=== PATIENT | male | born 1985 | race Asian ===

== ENCOUNTER 2022-12-20 20:18 | Emergency (ER) | payer OTHER, SELFPAY ==
[2022-12-20 20:48] VITALS: BP 96/67; PULSE 71; RESP 16; TEMP 36.6; O2SAT 97; BMI 24.0
--- NOTE | 2022-12-20 20:50 | ED_ITS ---
HPI - Male Genitourinary General Chief complaint: Urogenital-Male <Matt David - Last Filed: 12/20/22 20:51> Stated complaint: Painful urination <Matt David - Last Filed: 12/20/22 20:51> Time Seen by Provider: 12/21/22 01:24 <Matt David - Last Filed: 12/20/22 20:51> Source: patient <Payal Barnes MD - Last Filed: 12/21/22 01:34> Mode of arrival: ambulatory <Payal Barnes MD - Last Filed: 12/21/22 01:34> Limitations: no limitations <Payal Barnes MD - Last Filed: 12/21/22 01:34> History of Present Illness HPI Narrative: Patient comes emergency room complaining of mild dysuria for about 1 week. Patient denies concerns for sexually transmitted disease, denies penile discharge, no scrotal or testicular pain. Patient denies flank pain or abdominal pain, no nausea vomiting or diarrhea. No fever chills <Payal santos MD - Last Filed: 12/21/22 01:34> Related Data Home medications: Previous Rx's Medication Instructions Recorded phenazopyridine 100 mg tablet 100 mg PO TID PRN Dysuria 6 doses 12/21/22 #6 tabs <Matt David - Last Filed: 12/20/22 20:51> Allergies/Adverse reactions: Allergies Allergy/AdvReac Type Severity Reaction Status Date / Time No Known Allergies Allergy Verified 12/20/22 20:49 <Matt David - Last Filed: 12/20/22 20:51> Review of Systems Review of Systems: Constitutional : No Weight loss, No Fever, No Chills, No Night Sweats, No Fatigue, No Malaise ENT/Mouth : No Hearing loss, No Ear Pain, No Nasal Congestion, No Sinus Pain, No Hoarseness, No sore throat, No Rhinorrhea, No Swallowing Difficulty Eyes: No Eye Pain, No Swelling, No Redness, No Foreign Body, No Discharge, No Vision Changes Cardiovascular : No Chest Pain, No SOB, No Dyspnea on Exertion, No Orthopnea, No Edema, No Palpitations Respiratory : No Cough, No Sputum, No Wheezing, No Smoke Exposure, No Dyspnea Gastrointestinal : No Nausea, No Vomiting, No Diarrhea, No Constipation, No a bdominal Pain, No Hematochezia, No Melena Genitourinary : no irregular bleeding, complaining of mild Dysuria, No Urinary Frequency, No Hematuria, No Urinary Incontinence, No Urgency, No Flank Pain, No Urinary Flow Changes, No Hesitancy Musculoskeletal : No joint pain, No Myalgias, No Joint Swelling Skin : No Skin Lesions, No rash Neuro : No Weakness, No Numbness, No Paresthesias, No Loss of Consciousness, No Dizziness, No Headache Psych : No Anxiety/Panic, No Depression, No SI/HI/AH/VH, No Social Issues, Heme/Lymph: No Bruising, No Bleeding,No Lymphadenopathy Endocrine : No Polyuria, No Polydipsia, No Temperature Intolerance <Payal Barnes MD - Last Filed: 12/21/22 01:34> [facility] Social History Social History: Social History Advance Directives: No <Matt David - Last Filed: 12/20/22 20:51> Physical Exam Vital Signs: Vital Signs: Last Vital Signs Temp 97.8 F 12/20/22 20:48 Pulse 71 12/20/22 20:48 Resp 16 12/20/22 20:48 BP 96/67 12/20/22 20:48 Pulse Ox 97 12/20/22 20:48 O2 Del Method 12/20/22 20:48 BMI result Body Mass Index 24.0 <Matt David - Last Filed: 12/20/22 20:51> Vital Signs: Last Vital Signs Temp 97.8 F 12/20/22 20:48 Pulse 71 12/20/22 20:48 Resp 16 12/20/22 20:48 BP 96/67 12/20/22 20:48 Pulse Ox 97 12/20/22 20:48 O2 Del Method 12/20/22 20:48 BMI result Body Mass Index 24.0 <Payal Barnes MD - Last Filed: 12/21/22 01:34> Const: Other: Appearance: Alert. Oriented X3. No acute distress. Eyes: Pupils equal, round and reactive to light. ENT: Pharynx normal. Neck: Normal inspection. Neck supple. No lymph nodes noted. No crepitus CVS: Normal heart rate and rhythm. Pulses normal. Normal S1 and S2 Respiratory: No respiratory distress. Breath sounds normal. No Wheezing. No rales Abdomen: Soft and nontender. No rigidity. No distention. Skin: Skin warm and dry. Normal skin color. Normal skin turgor. Extremities: No lower extremity edema. No Lacerations. No Rash Neuro: Oriented X 3. No motor deficit. No sensory deficit. Moving all extremities. No slurred speech. CN 2 through 12 grossly intact Psych: calm, cooperative, normal affect <Payal Barnes MD - Last Filed: 12/21/22 01:34> Course Course Course Narrative: 37-year-old male presents for evaluation of dysuria x1 week. Denies any urethral discharge. No testicular pain or swelling <Matt David - Last Filed: 12/20/22 20:51> Medical Decision Making Medical Decision Making [facility] Narrative: -patient has no concerns for sexually transmitted diseases. Patient says he is monogamous with 1 partner, denies any STD like symptoms -patient's urinalysis showed a small amount of blood, no bacteria. Patient today has cystitis. -for symptoms, patient was giving a dose of phenazopyridine. <Payal Barnes MD - Last Filed: 12/21/22 01:34> Differential Diagnosis Differential Diagnoses: The differential diagnosis associated with the presentation includes (UTI, cystitis) <Payal Barnes MD - Last Filed: 12/21/22 01:34> Lab Data Labs: Lab Results 12/20/22 Range/Units 22:27 Urine Color Yellow Urine Appearance Clear Urine pH 6.0 (5.0-9.0) Ur Specific [place] 1.020 (1.005-1.025) Urine Protein Negative (Neg-Trace) mg/dL Urine Glucose (UA) Negative (Negative) mg/dL Urine Ketones Trace (Negative) mg/dL Urine Blood Small (1+) H (Negative) Urine Nitrite Negative (Negative) Ur Leukocyte Esterase Negative (Negative) Urine RBC 6-10 H (0-2) /HPF Urine WBC 0-5 (0-5) /HPF Ur Squamous Epith Cells 0-2 (0-2) /HPF Urine Bacteria None Seen (None Seen) Hyaline Casts 0-2 (0-2) /LPF <Matt David - Last Filed: 12/20/22 20:51> Lab Results 12/20/22 Range/Units 22:27 Urine Color Yellow Urine Appearance Clear Urine pH 6.0 (5.0-9.0) Ur Specific [place] 1.020 (1.005-1.025) Urine Protein Negative (Neg-Trace) mg/dL Urine Glucose (UA) Negative (Negative) mg/dL Urine Ketones Trace (Negative) mg/dL Urine Blood Small (1+) H (Negative) Urine Nitrite Negative (Negative) Ur Leukocyte Esterase Negative (Negative) Urine RBC 6-10 H (0-2) /HPF Urine WBC 0-5 (0-5) /HPF Ur Squamous Epith Cells 0-2 (0-2) /HPF Urine Bacteria None Seen (None Seen) Hyaline Casts 0-2 (0-2) /LPF <Payal Barnes MD - Last Filed: 12/21/22 01:34> Discharge Plan Discharge Clinical Impression: Dysuria <Matt David - Last Filed: 12/20/22 20:51> Patient Disposition: Home, Self-Care <Matt David - Last Filed: 12/20/22 20:51> Instructions: Dysuria (ED) <Matt David - Last Filed: 12/20/22 20:51> Additional Instructions: Please follow-up with your primary care physician tomorrow. If you have any worsening or new symptoms, please return to the emergency room or call 911 <Matt David - Last Filed: 12/20/22 20:51> Prescriptions: New phenazopyridine 100 mg tablet 100 mg PO TID PRN (Reason: Dysuria) Qty: 6 0RF <Matt David - Last Filed: 12/20/22 20:51>
[2022-12-20 22:35] LABS: Appearance Urine Clear; Color Urine Yellow; Glucose Urine UA Negative (Negative); Leukocyte Esterase Urine Negative (Negative); Nitrite Urine Negative (Negative); UMIC TRIGGER UACC YES; Urine Blood Small (1+) (Negative); Urine Ketones Trace mg/dL (Negative); Urine Protein Negative (Neg-Trace)
[2022-12-20 22:37] LABS: Bacteria Urine None Seen (None Seen); Hyaline Casts Urine 0-2 /LPF (0-2); Squamous Epithelial Cell Urine 0-2 /HPF (0-2); WBC Urine 0-5 /HPF (0-5)
[2022-12-21] MEDS: Phenazopyridine HCL 100 MG TABLET PO (01:45)
[2022-12-21 01:57] VITALS: BP 100/58; PULSE 69; RESP 16; TEMP 36.4; O2SAT 98
== END 2022-12-21 01:58 | disposition home or self-care (01) ==
PROVIDERS: Physician Assistant; Emergency Provider Emergency Medicine
DX: R30.0 Dysuria (principal)
CPT/HCPCS: 81001; 99283; 99284

== ENCOUNTER 2024-05-06 06:10 | Outpatient (REF) | payer OTHER, SELFPAY ==
[2024-05-07 12:23] LABS: RPR Rapid Plasma Reagin NON-REACTIVE (NON-REACTIVE)
[2024-05-09 02:19] LABS: TS Negative Control Passed; TS Panel A 1; TS Panel B 0; TS Positive Control Passed; TSpotTB Negative (Negative)
== END 2024-05-06 06:11 | disposition home or self-care (01) ==
LOC: HO.LAB 06:10
PROVIDERS: Visit Provider Internal Medicine
DX: Z02.89 Encounter for other administrative examinations (principal)
CPT/HCPCS: 36415; 86481; 86592

== ENCOUNTER 2024-07-15 22:02 | Emergency (ER) | payer OTHER, SELFPAY ==
[2024-07-15 22:23] VITALS: BP 111/64; PULSE 62; RESP 18; TEMP 36.8; O2SAT 97; BMI 25.8
[2024-07-15 22:46] LABS: MANUAL DIFF FLAG NO
[2024-07-15 22:57] LABS: Basophils Percent Auto 0.6 % (0-2); Eosinophils Absolute Auto 0.2 X10*3/uL (0.0-0.4); Eosinophils Percent Auto 3.4 % (0-4); Hematocrit 40.3 % (42.0-52.0); Hemoglobin 14.4 g/dl (14.0-18.0); Imm Gran Abs Auto 0.01 X10*3/uL (0.00-0.03); Imm Gran Pct Auto 0.1 % (0.0-0.4); Lymphocytes Absolute Auto 3.1 X10*3/uL (1.2-4.9); Lymphocytes Percent Auto 44.2 % (20-40); Mean Corpuscular HGB Conc 35.7 g/dl (31.0-36.0); Mean Corpuscular Hemoglobin 32.2 pg (27.0-33.0); Mean Corpuscular Volume 90.2 fL (80.0-98.0); Monocytes Absolute Auto 0.6 X10*3/uL (0.1-1.2); Monocytes Percent Auto 8.9 % (2-11); Neutrophils Percent Auto 42.8 % (45-73); Platelet Count 177 X10*3/uL (160-400); Red Blood Count 4.47 X10*6/uL (4.60-5.80); Red Cell Distribution Width 11.9 % (11.0-16.0)
[2024-07-15 23:02] LABS: Alanine Aminotransferase 38 U/L (0-40); Albumin Level 4.4 g/dL (3.5-5.0); Alkaline Phosphatase 54 U/L (39-117); Anion Gap 11 (12-20); Aspartate Amino Transferase 27 U/L (5-37); Bilirubin Total 0.3 mg/dL (0.0-1.0); Blood Urea Nitrogen 12 mg/dL (9-16); Calcium 8.9 mg/dL (8.4-10.2); Carbon Dioxide 26 mmol/L (22-29); Chloride 109 mmol/L (96-108); Creatinine Clr Calc Pharmacy 89.1; Estimated Glomerular Filt Rate > 60; Glucose Random 96 mg/dL (60-115); Potassium 4.1 mmol/L (3.3-5.1); Sodium 142 mmol/L (135-145); Total Protein 7.3 g/dL (6.5-8.0)
--- NOTE | 2024-07-16 01:29 | ED_ITS ---
HPI - GI Bleed General Chief complaint: GI Bleed Stated complaint: Blood in stool Time Seen by Provider: 07/16/24 01:20 Source: patient and family Limitations: no limitations History of Present Illness ED Provider: Dr. Mason HPI Narrative: patient had a BM three times today, each time he had blood in the toilet water and blood on the toilet paper. His stools each time were well formed with with blood not in the stool. Onset (ago): hour(s) Related Data Previous Rx's ?Medication ?Instructions ?Recorded phenazopyridine 100 mg tablet 100 mg PO TID PRN Dysuria 6 doses 12/21/22 #6 tabs docusate sodium 100 mg capsule 100 mg PO BID #20 caps 07/16/24 (Colace) Allergies Allergy/AdvReac Type Severity Reaction Status Date / Time No Known Allergies Allergy Verified 07/15/24 22:27 Review of Systems 2 Review of Systems: Yes all other systems are reviewed and are negative Neurologic: Denies Sensory deficit (Neuro) [facility] Social History Social History Advance Directives: No Advance Directives Information Provided: No Physical Exam 2 Vital Signs: Vital Signs: Last Vital Signs Temp 98.2 F 07/15/24 22:23 Pulse 62 07/15/24 22:23 Resp 18 07/15/24 22:23 BP 111/64 07/15/24 22:23 Pulse Ox 97 07/15/24 22:23 O2 Del Method Room Air 07/15/24 22:23 BMI result Body Mass Index 25.8 Const: General: healthy appearing Nutritional Appearance: average body habitus Orientation/consciousness: oriented to person and patient oriented x3 Limitations: no limitations HEENT: Head: Yes normal to inspection Ears: external ears normal General nose exam: Normal external nose present Mouth: Normal oral and palatal mucosa present and oropharynx normal Throat: Yes posterior oropharynx normal Eyes: General: appearance normal, both eyes and all related structures Neck: Other: supple Neck: Yes normal visual inspection Chest: Chest palpation & inspection: normal inspection of the chest Resp: Auscultation: clear to auscultation bilaterally Cardio: Jugular venous distension: no JVD Rate: regular rate Rhythm: r egular rhythm Heart sounds: S1 normal heart sound present and S2 normal heart sound present GI: Inspection: Yes normal to inspection Palpation (GI): Soft to palpation, nontender and No hepatosplenomegaly present Auscultation: normal bowel sounds : Other: rectal no hemorrhoids, there is a rectal fissure at the 6o'clock position. Stool brown. General: Yes no CVA tenderness Back/Spine/Pelvis: Back: no CVA tenderness Skin: General skin exam: no rashes or lesions noted Neuro: General: oriented to person and patient oriented x3 Cranial nerves: Yes CN's II-XII intact bilaterally Motor exam (neuro): 5/5 motor strength present throughout Sensory Exam: No Sensory deficit (Neuro) Extrem: General: Yes normal to inspection Psych: Appearance: grossly normal Course Reevaluation(s) Reevaluation #1: patient with rectal fissure will dc on colace Time: 01:34 Medical Decision Making Differential Diagnosis Differential Diagnoses: The differential diagnosis associated with the presentation includes (GI bleed, diverticulosis, hemorrhoids, rectal fissure) Admission/Observation Consideration of admission/observation: Escalation of care including admission/observation considered (upon arrival patient considered for admission) Lab Data 07/15/24 22:42 07/15/24 22:42 Labs: Lab Results 07/15/24 Range/Units 22:42 WBC 7.0 (4.8-10.8) X10*3/uL RBC 4.47 L (4.60-5.80) X10*6/uL Hgb 14.4 (14.0-18.0) g/dl Hct 40.3 L (42.0-52.0) % MCV 90.2 (80.0-98.0) fL MCH 32.2 (27.0-33.0) pg MCHC 35.7 (31.0-36.0) g/dl RDW 11.9 (11.0-16.0) % Plt Count 177 (160-400) X10*3/uL MPV 13.0 H (9.4-12.4) fL Immature Gran % (Auto) 0.1 (0.0-0.4) % Neut % (Auto) 42.8 L (45-73) % Lymph % (Auto) 44.2 H (20-40) % [place] % (Auto) 8.9 (2-11) % Eos % (Auto) 3.4 (0-4) % Baso % (Auto) 0.6 (0-2) % Lymph # (Auto) 3.1 (1.2-4.9) X10*3/uL [place] # (Auto) 0.6 (0.1-1.2) X10*3/uL Eos # (Auto) 0.2 (0.0-0.4) X10*3/uL Baso # (Auto) 0.0 (0.0-0.2) X10*3/uL Abs Immat Gran (auto) 0.01 (0.00-0.03) X10*3/uL Absolute Neuts (auto) 3.0 (2.0-8.3) x10*3/uL Absolute Nucleated RBC 0.000 (0.0-0.012) X10*3/uL Nucleated RBC % (auto) 0.0 (0.0-0.2) /100WBC Sodium 142 (135-145) mmol/L Potassium 4.1 (3.3-5.1) mmol/L Chloride 109 H (96-108) mmol/L Carbon Dioxide 26 (22-29) mmol/L Anion Gap 11 L (12-20) BUN 12 (9-16) mg/dL Creatinine 0.95 (0.5-1.4) mg/dL Estim Creat Clear Calc 89.1 Estimated GFR > 60 Random Glucose 96 (60-115) mg/dL Calcium 8.9 (8.4-10.2) mg/dL Total Bilirubin 0.3 (0.0-1.0) mg/dL AST 27 (5-37) U/L ALT 38 (0-40) U/L Alkaline Phosphatase 54 (39-117) U/L Total Protein 7.3 (6.5-8.0) g/dL Albumin 4.4 (3.5-5.0) g/dL Independent Historian Clinical information obtained from an independent historian. History obtained from or confirmed by: Spouse Tests considered The following testing was considered but not selected: CT of abdomen considered, but abdomen soft no evidence of intermal bleed and rectal fissure on exam Discharge Plan Discharge Clinical Impression: Anal fissure Patient Disposition: Home, Self-Care Instructions: Rectal Bleeding (ED), Anal Fissure (ED) Prescriptions: New docusate sodium [Colace] 100 mg capsule 100 mg PO BID Qty: 20 0RF No Action phenazopyridine 100 mg tablet 100 mg PO TID PRN (Reason: Dysuria) Qty: 6 0RF Referrals: Mara Reina [Primary Care Provider] - 5 days Print Language: Maltese
[2024-07-16 02:00] VITALS: BP 104/61; PULSE 59; RESP 16; TEMP 36.3; O2SAT 97
[2024-07-16] MEDS: Docusate Sodium 100 MG CAPSULE PO (02:00)
[2024-07-16 02:05] VITALS: BP 104/61; PULSE 59; RESP 16; TEMP 36.3; O2SAT 97
== END 2024-07-16 02:07 | disposition home or self-care (01) ==
PROVIDERS: Emergency Provider Emergency Medicine; PCP Nurse Practitioner Family
DX: K60.2 Anal fissure, unspecified (principal); K62.5 Hemorrhage of anus and rectum; Z79.899 Other long term (current) drug therapy
CPT/HCPCS: 36415; 80053; 85025; 99283; 99284